=== PATIENT | male | born 1995 | race Caucasian/White ===

== ENCOUNTER → 2024-02-27 10:26 | Outpatient (CLI) | payer OTHER, SELFPAY ==
--- NOTE | 2024-02-27 11:03 | DI.RAD.S_ITS ---
PROCEDURE: XR HAND RT 2V INDICATIONS: L WRIST/R HAND FRACTURE TECHNIQUE: 2 views of the hand(s) acquired. COMPARISON: None. FINDINGS: Bones: There are no osseous abnormalities Joints: The joint spaces are normal in width and alignment without arthritic change. Soft tissues: No soft tissue abnormality. IMPRESSION: Normal. Dictated by: Jorgito Conte M.D. on 03/01/2024 at 6:29 Approved by: Jorgito Conte M.D. on 03/01/2024 at 6:29
--- NOTE | 2024-02-27 11:03 | DI.RAD.S_ITS ---
PROCEDURE: XR WRIST LT 2V INDICATIONS: L WRIST/R HAND FRACTURE TECHNIQUE: 2 views of the wrist were acquired. COMPARISON: None. FINDINGS: Bones: There are no osseous abnormalities Joints: The joint spaces are normal in width and alignment without arthritic change. Soft tissues: No soft tissue abnormality. IMPRESSION: Normal. Dictated by: Jorgito Conte M.D. on 03/01/2024 at 6:28 Approved by: Jorgito Conte M.D. on 03/01/2024 at 6:29
== END ==
PROVIDERS: Referring Provider Chiropractor; Visit Provider Chiropractor
DX: M84.40XA Pathological fracture, unspecified site, initial encounter for fracture (principal)
CPT/HCPCS: 73100; 73120